=== PATIENT | male | born 1960 | race American Indian/Alaskan Native ===

== ENCOUNTER 2018-10-17 10:56 | Emergency (ER) | payer OTHER ==
[2018-10-17 13:13] VITALS: BP 158/101
== END 2018-10-17 13:05 ==
LOC: ED 10:56
DX: Z01.30 Encounter for examination of blood pressure without abnormal findings (principal); Z53.21 Procedure and treatment not carried out due to patient leaving prior to being seen by health care provider

== ENCOUNTER 2018-10-25 09:24 | Emergency (ER) | payer MEDICAID, OTHER ==
--- NOTE | 2018-10-25 11:11 | Emergency Department Report ---
ED ENT HPI - General Chief complaint: Earache Stated complaint: LEFT EAR /CLOGGED Time Seen by Provider: 10/25/18 11:05 Source: patient Mode of arrival: Ambulatory Limitations: No Limitations - History of Present Illness complaint: ear pain Location: L ear Severity: moderate Associated Symptoms: denies: fever - Related Data Allergies Allergy/AdvReac Type Severity Reaction Status Date / Time No Known Allergies Allergy Verified 10/25/18 09:27 ED Dental HPI - General Chief complaint: Earache Stated complaint: LEFT EAR /CLOGGED Time Seen by Provider: 10/25/18 11:05 Source: patient Mode of arrival: Ambulatory Limitations: No Limitations - Related Data Allergies Allergy/AdvReac Type Severity Reaction Status Date / Time No Known Allergies Allergy Verified 10/25/18 09:27 ED Review of Systems ROS: Stated complaint: LEFT EAR /CLOGGED Other details as noted in HPI Comment: All other systems reviewed and negative Constitutional: denies: chills, fever ENT: ear pain Respiratory: denies: cough Endocrine: denies: excessive sweating, flushing Gastrointestinal: denies: abdominal pain, nausea Neurological: denies: headache, numbness, paresthesias, confusion, abnormal gait ED Past Medical Hx - Past Medical History Hx Hypertension: Yes - Surgical History Additional Surgical History: back and neck sx, knot on head removed - Social History Smoking Status: Current Every Day Smoker Substance Use Type: Alcohol ED Physical Exam - General Limitations: No Limitations General appearance: alert, in no apparent distress - Head Head exam: Present: atraumatic, normocephalic, normal inspection - Eye Eye exam: Present: normal appearance, PERRL - ENT ENT exam: Present: other (left ear with a cerumen impaction, no clinical evidence of infection.) - Neck Neck exam: Present: normal inspection, full ROM. Absent: tenderness, meningismus, lymphadenopathy, thyromegaly - Respiratory Respiratory exam: Present: normal lung sounds bilaterally - Cardiovascular Cardiovascular Exam: Present: regular rate, normal rhythm, normal heart sounds - Neurological Exam Neurological exam: Present: alert, oriented X3, CN II-XII intact, normal gait, reflexes normal ED Course Vital Signs 10/25/18 10:08 Temperature 97.8 F Pulse Rate 67 Respiratory 18 Rate Blood Pressure 138/76 O2 Sat by Pulse 100 Oximetry Critical care attestation.: If time is entered above; I have spent that time in minutes in the direct care of this critically ill patient, excluding procedure time. ED Disposition Clinical Impression: Left ear impacted cerumen Disposition: - TO HOME OR SELFCARE Is pt being admited?: No Condition: Stable Instructions: Cerumen Impaction (ED) Referrals: CARLOS BATRES MD [Primary Care Provider] - 3-5 Days
[2018-10-25 11:39] VITALS: BP 129/82
== END 2018-10-25 11:39 | disposition home or self-care (01) ==
LOC: ED 09:24
DX: H61.22 Impacted cerumen, left ear (principal); I10 Essential (primary) hypertension; F17.200 Nicotine dependence, unspecified, uncomplicated
CPT/HCPCS: 99282